=== PATIENT | female | born 1980 | race Caucasian/White ===

== ENCOUNTER 2017-04-03 21:23 | Emergency (ER) | payer SELFPAY ==
[2017-04-03 22:02] LABS: #Eosinphils 0.1 thou/uL (0.0-0.7); #Lymphocytes 1.6 thou/uL (1.20-3.40); #Monocytes 0.4 thou/uL (0.11-0.59); #Neutrophils 3.2 thou/uL (1.40-6.50); %Basophils 0.3 % (0.0-1.0); %Eosinophils 2.5 % (0.0-10.0); %Lymphocytes 30.3 % (21.0-51.0); %Monocytes 7.2 % (0.0-10.0); Hematocrit 36.6 % (36.0-47.0); Mean Platelet Volume 8.3 fL (7.4-10.4); Red Blood Cell (RBC) Count 4.03 mill/uL (4.20-5.40); White Blood Cell (WBC) Count 5.4 thou/uL (4.8-10.8)
[2017-04-03 22:20] LABS: Bilirubin Negative (Negative); Blood, Urine Negative (Negative); Glucose, Urine (Dipstick) Negative (Negative); Ketone, Urine Negative (Negative); Nitrite Negative (Negative); Protein, Urine (Dipstick) Negative (Neg-Trace); Urobilinogen 0.2 mg/dL (0.2-1.0)
[2017-04-03 22:22] LABS: Amphetamine Not Detected (NotDetected); Methadone Not Detected (NotDetected); Methamphetamine Not Detected (NotDetected)
[2017-04-03 22:25] LABS: ALT (SGPT) 15 U/L (8-55); AST (SGOT) 14 U/L (5-34); Alkaline Phosphatase 62 U/L (40-150); Anion Gap 12 mmol/L (10-20); BUN (Urea Nitrogen) 10 mg/dL (7.0-18.7); Bilirubin, Total 0.5 mg/dL (0.2-1.2); CK (CPK) 38 U/L (29-168); Calc. Creatinine Clearance 0 mL/min (70-130); Carbon Dioxide 24 mmol/L (22-29); Chloride 106 mmol/L (98-107); Estimated GFR-MDRD Greater than 90; Globulin 2.9 g/dL (2.4-3.5); Lipase 33 U/L (8-78); Protein, Total 6.7 g/dL (6.0-8.3)
[2017-04-03 22:28] LABS: Troponin I Less than 0.010 ng/mL (< 0.028)
[2017-04-03] MEDS ORDERED: hydrOXYzine 25 MG TAB ONE (22:31)
--- NOTE | 2017-04-03 22:46 | RAD ---
PORTABLE UPRIGHT FRONTAL CHEST: Date: 04/03/17 HISTORY: Shortness of breath with tachycardia and chest pain. FINDINGS: Lungs are clear. Heart and mediastinal contour is unremarkable. IMPRESSION: No acute findings. POS: [facility]
[2017-04-04 00:40] LABS: Troponin I Less than 0.010 ng/mL (< 0.028)
--- NOTE | 2017-04-05 12:59 | EKG ---
Test Reason : CP Blood Pressure : / mmHG Vent. Rate : 088 BPM Atrial Rate : 088 BPM P-R Int : 136 ms QRS Dur : 076 ms QT Int : 370 ms P-R-T Axes : 025 010 052 degrees QTc Int : 447 ms Normal sinus rhythm Normal ECG Confirmed by DILAN ONOFRE ([id number]), general expeditor LACY LESLIE ([id number] on 04/05/2017 12:58:46 PM Referred By: Confirmed By:DILAN ONOFRE
== END 2017-04-04 01:13 | disposition home or self-care (01) ==
LOC: ERS 21:23
DX: R07.2 Precordial pain (principal); F41.9 Anxiety disorder, unspecified; F32.9 Major depressive disorder, single episode, unspecified; Z87.891 Personal history of nicotine dependence
CPT/HCPCS: 36415; 71010; 80053; 80306; 81003; 82553; 83690; 83735; 83880; 84443; 84484; 85025; 93005

== ENCOUNTER 2017-09-01 21:36 | Emergency (ER) | payer SELFPAY ==
[2017-09-02] MEDS ORDERED: Ketorolac Tromethamine 30 MG/ML VIAL ONE (01:11)
--- NOTE | 2017-09-02 08:45 | RAD ---
RIGHT HAND 3 VIEWS: Date: 09/02/17 PROVIDED CLINICAL HISTORY: Right hand pain. FINDINGS: There is no evidence of fracture or other acute osseous abnormality. If there is persistent clinical concern, conservative management and follow-up imaging are advised. IMPRESSION: As above. POS: [facility]
--- NOTE | 2017-09-02 08:54 | RAD ---
RIGHT ANKLE THREE VIEWS: Indication: Pain. FINDINGS: There is no abnormal malalignment or fracture involving the right ankle. There is soft tissue swellin g. Prominent enthesophytes over the calcaneus are seen. IMPRESSION: No acute fracture of the right ankle. Soft tissue swelling. Correlate clinically. POS: [facility]
== END 2017-09-02 02:08 | disposition home or self-care (01) ==
LOC: ERS 21:36
DX: M79.641 Pain in right hand (principal); M79.604 Pain in right leg; F41.9 Anxiety disorder, unspecified; F32.9 Major depressive disorder, single episode, unspecified; Z87.891 Personal history of nicotine dependence; Z79.899 Other long term (current) drug therapy
CPT/HCPCS: 96372; J1885

== ENCOUNTER 2017-11-16 20:08 | Emergency (ER) | payer SELFPAY | END 2017-11-17 00:08 | disposition home or self-care (01) | LOC: ERS 20:08 | DX: J31.0 Chronic rhinitis (principal); Z87.891 Personal history of nicotine dependence; Z79.899 Other long term (current) drug therapy | CPT/HCPCS: 87081; 87430; 99283 ==

== ENCOUNTER 2020-10-24 09:28 | Emergency (ER) | payer SELFPAY | END 2020-10-24 10:42 | disposition home or self-care (01) | LOC: ERS 09:28 | DX: M25.571 Pain in right ankle and joints of right foot (principal); Z87.891 Personal history of nicotine dependence; Z79.899 Other long term (current) drug therapy; X58.XXXA Exposure to other specified factors, initial encounter; Y93.41 Activity, dancing ==